=== PATIENT | male | born 1960 | race African-American/Black ===

== ENCOUNTER → 2017-03-01 | Emergency (ER) | payer OTHER ==
[~2017-03-01] MED LIST: ASPIRIN 325 MG ENTERIC COATED TABLET (FP) ONE; ASPIRIN 325 MG ENTERIC COATED TABLET (FP) PO ONE; ASPIRIN 81 MG CHEWABLE TABLETS ONE; ASPIRIN 81 MG CHEWABLE TABLETS PO ONE; HEPARIN INFUSION - 500 ML IVPB ONE; HEPARIN NA (PORCINE) 5,000 UNITS/ML 1ML VIAL IVPUSH PRN; HEPARIN NA (PORCINE) 5,000 UNITS/ML 1ML VIAL ONE; METOPROLOL TARTRATE 25 MG TABLET (FP) PO SCH; METOPROLOL TARTRATE 5 MG/5 ML VIAL IVPUSH ONE; METOPROLOL TARTRATE 5 MG/5 ML VIAL ONE; NITROGLYCERIN 2% OINTMENT - 1GM PACKET TD ONE; TICAGRELOR 90 MG TABLET PO ONE; TICAGRELOR 90 MG TABLET PO STA; morphine CARPU-JECT 10 MG/1 ML DISP.SYRIN ONE; morphine SULFATE 4 MG/ML VIAL IVPUSH ONE
[2017-03-01 13:11] VITALS: BMI 31.3
--- NOTE | 2017-03-01 13:42 | CON.CARD ---
Consult Consult Specialty:: Cardiology Referred by:: Emergency Medicine Reason for Consultation:: Chest pain - History of Present Illness Chief Complaint: Chest pain History of Present Illness: 56 yo AAM with h/o hyperlipidemia presents with non-radiating chest pressure starting 8 AM with dyspnea and splinting (cannot take full breaths), diaphoresis , orthopnea, pleurisy, non-positional, denies near or true syncope, palpitations , PND or LE edema. - History Source History Provided By: Patient Limitations to Obtaining History: No Limitations - Past Medical History Cardio/Vascular: Yes: HTN, Hyperlipdemia - Alcohol/Substance Use Hx Alcohol Use: Yes (OCCASIONALLY) - Smoking History Smoking history: Never smoked Have you smoked in the past 12 months: No Home Medications - Allergies Allergies/Adverse Reactions: Allergies Allergy/AdvReac Type Severity Reaction Status Date / Time No Known Allergies Allergy Verified 03/01/17 13:11 - Home Medications Home Medications: Ambulatory Orders Levofloxacin [Levaquin -] 500 mg PO DAILY #7 tablet 08/28/15 Metronidazole [Flagyl -] 500 mg PO BID #14 tablet 08/28/15 Ondansetron [Zofran *Odt*] 4 mg SL TID #30 od.tablet 08/28/15 Pantoprazole Sodium [Protonix] 40 mg PO DAILY #30 tablet. 08/28/15 Review of Systems - Review of Systems Cardiovascular: reports: Chest Pain Respiratory: reports: SOB Vital Signs: Vital Signs Temperature Pulse Rate 97 H 03/01/17 13:08 Respiratory Rate 16 03/01/17 13:08 Blood Pressure 180/104 03/01/17 13:08 O2 Sat by Pulse Oximetry (%) 95 03/01/17 13:08 Constitutional: Yes: No Distress, Calm Neck: Yes: Supple Respiratory: Yes: Regular, Diminished Gastrointestinal: Yes: Normal Bowel Sounds, Soft, Abdomen, Obese Cardiovascular: Yes: Regular Rate and Rhythm JVD: No Carotid Bruit: No Heart Sounds: Yes: S1, S2 Edema: No - Other Data NSR @ 95 evolved anteroseptal infarct Problem List - Problems (1) Abnormal EKG Code(s): R94.31 - ABNORMAL ELECTROCARDIOGRAM [ECG] [EKG] (2) Hypertensive emergency Code(s): I16.1 - HYPERTENSIVE EMERGENCY (3) Hyperlipidemia Code(s): E78.5 - HYPERLIPIDEMIA, UNSPECIFIED Qualifiers: Hyperlipidemia type: pure hypercholesterolemia Qualified Code(s): E78.00 - Pure hypercholesterolemia, unspecified; E78.00 - Pure hypercholesterolemia, unspecified; E78.00 - Pure hypercholesterolemia, unspecified; E78.0 - Pure hypercholesterolemia (4) Acute NJ, anterior wall, initial episode of care Code(s): I21.09 - STEMI INVOLVING OTH CORONARY ARTERY OF ANTERIOR WALL Assessment/Plan 1. Chest pain syndrome with pleurisy, r/o post-NJ pericarditis vs. ongoing post- NJ ischemia 2. CAD evolved anterior wall NJ on EKG 3. Hyperlipidemia 4. Hypertensive emergency 5. Suspect LV dysfunction P:1. Trops 12, start Lopressor 25 bid, IV Lopressor, ASA 81 qd, Brilintal 180 load, Heparin bolus, Lipitor 80. 2. Echocardiogram shows moderate LV dysfunction with RWMA c/w LAD infarct, no effusion, check TSH, lipid panel, Ha1c 3. Chest CTA negative for PE or aortic dissection 4. He underwent urgent LHC +/-PCI given ongoing post-NJ ischemic sxs. LHC showed 100% thrombotic prox LAD, 80% mid LCx, 50% mid RCA, severe LV dysfunction with elevated LVEDP>30 mmHg. He underwent mechanical thrombectomy and implant Synergy 3.5x15 mm BONNIE to prox LAD lesion, planned for staged PCI LCx once clinically stable. Will need optimal medical therapy for ischemic cardiomyopathy, likely LifeVest, LV fxn reassessment 40 days post NJ. 5. Thank you for consultative opportunity
[2017-03-01 13:49] LABS: BASOPHIL 0.6 % (0-2.0); EOSINOPHIL 0.1 % (0-4.5); MCHC 33.3 g/dl (32.0-35.9); MEAN PLT VOLUME 9.6 fl (7.5-11.1); NEUTROPHILS 89.4 % (42.8-82.8); PLATELET COUNT 180 K/MM3 (134-434); RDW 13.6 % (11.9-15.9); WHITE BLOOD COUNT 9.9 K/mm3 (4.0-10.0)
--- NOTE | 2017-03-01 13:50 | PDOC ---
History of Present Illness - General History Source: Patient Exam Limitations: No Limitations - History of Present Illness Initial Comments: 03/01/17 13:56 The patient is a 56 year old male with history of hyperlipidemia, not on medications, who presents to the ED complaining of constant, pressure like chest pain that extends across the chest and radiates to the back, which is ranked 8/10 and is worse with breathing. He also reports associated nausea, diaphoresis, and lightheadedness. No vomiting. No fever or chills. No peripheral edema. The patient denies family history of heart disease. He has never experienced this before. <Yoko Gonsalves - Last Filed: 03/01/17 15:10> <Dennis Fitch - Last Filed: 03/01/17 16:54> - General Chief Complaint: Chest Pain Stated Complaint: CHEST PAIN Time Seen by Provider: 03/01/17 13:13 Past History <Yoko Gonsalves - Last Filed: 03/01/17 15:10> - Past Medical History Hypercholesterolemia: Yes - Immunization History Immunization Up to Date: Yes - Suicide/Smoking/Psychosocial Hx Smoking History: Never smoked Have you smoked in the past 12 months: No Hx Alcohol Use: Yes (OCCASIONALLY) Drug/Substance Use Hx: No Substance Use Type: None <Dennis Fitch - Last Filed: 03/01/17 16:54> - Past Medical History Allergies/Adverse Reactions: Allergies Allergy/AdvReac Type Severity Reaction Status Date / Time No Known Allergies Allergy Verified 03/01/17 13:11 Home Medications: Ambulatory Orders Levofloxacin [Levaquin -] 500 mg PO DAILY #7 tablet 08/28/15 Metronidazole [Flagyl -] 500 mg PO BID #14 tablet 08/28/15 Ondansetron [Zofran *Odt*] 4 mg SL TID #30 od.tablet 08/28/15 Pantoprazole Sodium [Protonix] 40 mg PO DAILY #30 tablet. 08/28/15 Review of Systems - Review of Systems Able to Perform ROS?: Yes Comments:: 03/01/17 13:59 A complete review of 10 out of 10 review of systems is taken and is negative apart from what is previously mentioned below and in the HPI. <Yoko Gonsalves - Last Filed: 03/01/17 15:10> *Physical Exam - Vital Signs Last Vital Signs Temp Pulse Resp BP Pulse Ox 92 H 20 141/90 98 03/01/17 13:51 03/01/17 13:51 03/01/17 13:51 03/01/17 13:51 - Physical Exam Comments: 03/01/17 14:00 Vitals: Triage Vital signs reviewed General Appearance: Well nourished, well developed, +mild distress Head: Atraumatic, normocephalic Neck: Supple; No Nuchal rigidity Chest Wall: Nontender Cardiac: Regular rate and rhythm, no murmurs, no rubs, no gallops, Lungs: Fine crackles at bases bilaterally Abdomen: Soft, nondistended, normal bowel sounds, nontender to palpation Extremities: Full range of motion to all extremities, no cyanosis, clubbing, or edema. Good bilateral radial pulses. Skin: Warm and dry, no rashes or lesions, no petechiae Neuro: AOX3; Cranial Nerves 2-12 grossly c intact, Strength intact to all extremities, Sensation intact to all extremities, gait normal Psych: normal mood, normal affect <Yoko Gonsalves - Last Filed: 03/01/17 15:10> - Vital Signs Last Vital Signs Temp Pulse Resp BP Pulse Ox 97 H 16 180/104 95 03/01/17 13:08 03/01/17 13:08 03/01/17 13:08 03/01/17 13:08 <Dennis Fitch - Last Filed: 03/01/17 16:54> Heart Score/ECG Review #1 03/01/17 14:03 EKG performed at 13:08 demonstrates rate of 95, NSR, axis equal to normal. Additional findings include: Q waves in leasds V1, V2, V3, and V4 with St elevations in V1 - V4. No prior available for comparison study <Yoko Gonsalves - Last Filed: 03/01/17 15:10> ED Treatment Course - LABORATORY CBC & Chemistry Diagram: 03/01/17 13:37 03/01/17 13:37 - ADDITIONAL ORDERS Additional order review: 03/01/17 13:37 RBC 5.16 MCV 87.0 MCHC 33.3 RDW 13.6 MPV 9.6 Neutrophils % 89.4 H Lymphocytes % 7.7 L D Monocytes % 2.2 L Eosinophils % 0.1 Basophils % 0.6 - Medications Given in the ED: ED Medications Discontinued Medications Generic Name Dose Route Start Last Admin Trade Name Freq PRN Reason Stop Dose Admin Aspirin 162 mg 03/01/17 13:13 03/01/17 13:48 Asa - PO 03/01/17 13:14 162 mg ONCE ONE Administration Aspirin 325 mg 03/01/17 13:24 03/01/17 13:48 Ecotrin - PO 03/01/17 13:25 325 mg ONCE ONE Administration Nitroglycerin 0.5 inch 03/01/17 13:22 03/01/17 13:48 Nitro-Bid 2% Paste - TD 03/01/17 13:23 0.5 inch ONCE ONE Administration <Yoko Gonsalves - Last Filed: 03/01/17 15:10> - LABORATORY CBC & Chemistry Diagram: 03/01/17 13:37 03/01/17 13:37 - RADIOLOGY Radiology Studies Ordered: Category Date Time Status CHEST CTA [CT] Stat CT Scan 03/01/17 13:48 Ordered CXRPORT [CHEST X-RAY PORTABLE*] [RAD] Stat Radiology 03/01/17 13:19 Completed CXRPORT [CHEST X-RAY PORTABLE*] [RAD] Stat Radiology 03/01/17 13:39 Ordered - Medications Given in the ED: ED Medications Discontinued Medications Generic Name Dose Route Start Last Admin Trade Name Freq PRN Reason Stop Dose Admin Aspirin 162 mg 03/01/17 13:13 03/01/17 13:48 Asa - PO 03/01/17 13:14 162 mg ONCE ONE Administration Aspirin 325 mg 03/01/17 13:24 03/01/17 13:48 Ecotrin - PO 03/01/17 13:25 325 mg ONCE ONE Administration Nitroglycerin 0.5 inch 03/01/17 13:22 03/01/17 13:48 Nitro-Bid 2% Paste - TD 03/01/17 13:23 0.5 inch ONCE ONE Administration - Consult/PCP Time Called: 13:20 (does not meet stemi criteria, recomends echo/cta, serial trop) Case discussed with personal care physician: Chris Bettencourt <Denins Fitch - Last Filed: 03/01/17 16:54> Medical Decision Making - Medical Decision Making 03/01/17 14:37 Pt re-evaluated, still complaining of pain, will order morphine drip troponin of 12 noted CXR notable for widened mediastinum, pt awaiting chest CTA to rule out dissection, case again discussed with Dr. Chris Bettencourt of cardiology 03/01/17 15:10 Re-evaluation. CTA negative for dissection Events Intern at bedside At this point, will initiate transfer to [facility] for cardiac catheterization. <Yoko Gonsalves - Last Filed: 03/01/17 15:10> - Critical Care Time Total Critical Care Time (minutes): 65 Critical Care Statement: The care of this patient involved high complexity decision making to prevent further life threatening deterioration of the patient 's condition and/or to evaluate & treat vital organ system(s) failure or risk of failure. - Medical Decision Making 03/01/17 14:09 56 years old high cholesterol not on medications presents with pressure-like chest pain 8 out of 10 across his chest radiating to his back. EKG demonstrates old anterior septal infarct with Q waves and ST elevations in V1 through V4. Case immediately discussed with cardiology states EKG does not meet ST MATA criteria Given chest pain with pleurisy and radiation will obtain echo CTA chest to rule out PE versus dissection aspirin and nitroglycerin given blood pressure now 140 systolic CXT with widened mediastinum. Will Obtain CTA prior to anticoagulation 03/01/17 15:18 Reevaluation CTA negative for dissection. Cardiology at bedside we'll transfer for cardiac catheterization at this time given negative CTA it is safe to give anticoagulation heparin bolus, Brilinta, Lopressor ordered per interventional cardiology Patient consented for transfer. <Dennis Fitch - Last Filed: 03/01/17 16:54> *DC/Admit/Observation/Transfer - Attestations Scribe Attestion: 03/01/17 14:02 Documentation prepared by Yoko Gonsalves, acting as medical device sales for Dennis Fitch MD. <Yoko Gonsalves - Last Filed: 03/01/17 15:10> <Dennis Fitch - Last Filed: 03/01/17 16:54> Diagnosis at time of Disposition: Acute coronary syndrome - Discharge Dispostion Disposition: TRANSFER ACUTE CARE/OTHER HOSP
[2017-03-01 13:59] LABS: INR 1.01 (0.82-1.09); PROTHROMBIN TIME (PATIENT) 11.4 SEC (9.98-11.88)
[2017-03-01 14:10] LABS: ALBUMIN 4.6 g/dl (3.4-5.0); ANION GAP 11 (8-16); CALCIUM 8.7 mg/dL (8.5-10.1); CO2 30 mmol/L (21-32); CREATININE 1.2 mg/dL (0.7-1.3); GLUCOSE,RANDOM 127 mg/dL (74-106); SGPT/ALT 99 U/L (12-78)
[2017-03-01 14:26] LABS: ALK PHOS 65 U/L (45-117); BILIRUBIN,TOTAL 0.6 mg/dL (0.2-1.0); CPK 946 IU/L (39-308); TOT PROT 8.7 g/dl (6.4-8.2)
[2017-03-01 14:31] LABS: SGOT/AST 150 U/L (15-37)
[2017-03-01 14:32] LABS: TROPONIN I 12.43 ng/ml (0.00-0.05)
[2017-03-01 15:24] VITALS: BP 152/105; PULSE 96
[2017-03-01 15:54] VITALS: TEMP 98
--- NOTE | 2017-03-02 22:41 | EKG ---
Test Reason : Blood Pressure : / mmHG Vent. Rate : 095 BPM Atrial Rate : 095 BPM P-R Int : 166 ms QRS Dur : 090 ms QT Int : 366 ms P-R-T Axes : 054 069 012 degrees QTc Int : 459 ms NORMAL SINUS RHYTHM ANTERIOR WALL MYOCARDIAL INFARCTION ACUTE AND OR RECENT ABNORMAL ECG NO PREVIOUS ECGS AVAILABLE FOLLOW UP TRACING. Confirmed by KRISSY MCDONNELL MD ([id number] on 03/02/2017 10:40:57 PM Referred By: Confirmed By:KRISSY MCDONNELL MD
--- NOTE | 2017-03-04 13:00 | EKG ---
Test Reason : Blood Pressure : / mmHG Vent. Rate : 094 BPM Atrial Rate : 094 BPM P-R Int : 166 ms QRS Dur : 084 ms QT Int : 368 ms P-R-T Axes : 061 073 052 degrees QTc Int : 460 ms NORMAL SINUS RHYTHM POSSIBLE LEFT ATRIAL ENLARGEMENT ANTEROSEPTAL INFARCT (CITED ON OR BEFORE 01-MAR-2017) ABNORMAL ECG WHEN COMPARED WITH ECG OF 01-MAR-2017 13:08, NO SIGNIFICANT CHANGE WAS FOUND Confirmed by MATTEO GARCIA MD ([id number]) on 03/04/2017 1:00:39 PM Referred By: Confirmed By:MATTEO GARCIA MD
== END | disposition short-term general hospital (02) ==
LOC: JER 12:58
PROC: 3E033NZ Introduction of Analgesics, Hypnotics, Sedatives into Peripheral Vein, Percutaneous Approach (ICD-10-PCS; principal; 2017-03-01)
PROC: 3E033GC Introduction of Other Therapeutic Substance into Peripheral Vein, Percutaneous Approach (ICD-10-PCS; 2017-03-01)
PROC: 3E033GC Introduction of Other Therapeutic Substance into Peripheral Vein, Percutaneous Approach (ICD-10-PCS; 2017-03-01)
DX: I21.09 ST elevation (STEMI) myocardial infarction involving other coronary artery of anterior wall (principal); I16.1 Hypertensive emergency; E78.5 Hyperlipidemia, unspecified; R94.31 Abnormal electrocardiogram [ECG] [EKG]
CPT/HCPCS: 36415; 71010-TC; 71275-TC; 74175-TC; 80053; 82550; 82553; 83735; 83880; 84484; 85025; 85610; 93005; 93010; 93306-TC; 99284-25; J1644